=== PATIENT | male | born 1960 ===

== ENCOUNTER 2018-02-12 22:21 | Emergency (ER) | payer OTHER ==
--- NOTE | 2018-02-12 22:59 | ED PDOC ---
HPI: Cardiac Arrest Chief Complaint (Provider): cardiac arrest History Per: EMS, Family Reason For Code Blue: Full Arrest Circumstances: Brought To ED By EMS Arrest Witnessed By: No One CPR Initiated Prior To MD Arrival?: Yes Down-Time Before ACLS: Unknown Treatment Initiated Prior To MD Arrival: CPR, BVM Ventilations, Defibrillation Additional Complaint(s): 57yo man with h/o high cholesterol bright in by [facility] in cardiac arrest According to pt's son, pt's friends called son at 815p because pt was unresponsive after drinking and needed to be driven home. Son found pt unresponsive but warm, and he drove him home. When arrived at home, pt still unresponsive and family was only able to move him from car to ground next to car because pt was not moving at all on his own. Son noticed at that time he was cold and not breathing and called police, then EMS contacted. EMS report no pulse or breathing on their arrival. CPR was initiated. Defibrillator placed that recommended shock. Cardiac arrest persisted and CPR continued and pt transported to ER. PM Dr Amadeo Root - Initial Findings Mentation: Unresponsive Respirations: None (Assisted) Pulse: None Rhythm: Asystole <Zayra Barraza - Last Filed: 02/12/18 23:19> <Jim Cabrales - Last Filed: 02/13/18 04:20> Time Seen by Provider: 02/12/18 22:51 Chief Complaint (Nursing): Cardiac Arrest Past Medical History Reviewed: Historical Data, Nursing Documentation, Vital Signs - Medical History PMH: HTN, Hyperlipidemia Denies: Chronic Kidney Disease - Family History Family History: States: Unknown Family Hx - Social History Current smoker - smoking cessation education provided: No Alcohol: Social <Zayra Barraza - Last Filed: 02/12/18 23:19> <Jim Cabrales - Last Filed: 02/13/18 04:20> - Allergies Allergies/Adverse Reactions: Allergies Allergy/AdvReac Type Severity Reaction Status Date / Time No Known Allergies Allergy Verified 02/12/18 22:30 Review of Systems Review Of Systems: ROS cannot be obtained secondary to pt's inabilty to answer questions. <Zayra Barraza - Last Filed: 02/12/18 23:19> Physical Exam - Physical Exam Appears: Positive for: In Acute Distress Head Exam: Positive for: ATRAUMATIC, NORMOCEPHALIC Skin: Positive for: Mottled, Cyanosis Eye Exam: Positive for: Other (no corneal reflex, pupils fixed) ENT: Positive for: Other (copious dark brown fluid and debris (food particles) from nose and mouth) Neck: Positive for: Trachea Midline Cardiovascular/Chest: Positive for: Other (No cardiac impulse, no pulse) Respiratory: Positive for: Other (Apneic, minimal air movement with bag-vent) Gastrointestinal/Abdominal: Positive for: Soft. Negative for: Distended Back: Positive for: Other (No abnormalities) Extremity: Negative for: Pedal Edema, Deformity Neurologic/Psych: Positive for: Other (GCS 3). Negative for: Alert <Zayra Barraza - Last Filed: 02/12/18 23:19> - Progress ED Course And Treament: No cardiac activity on bedside US Intubation and TLC placement performed by Dr Cabrales ACLS protocol followed with no ROSC Time of called 1044p Family in ER during resuscitation attempt and and aware. <Zayra Barraza - Last Filed: 02/12/18 23:19> Procedures - Central Line Central Line Lumen: triple Central Line Postion: femoral (R) Complications: none Central Line Post Position: good blood return <Jim Cabrales - Last Filed: 02/13/18 04:20> Disposition - Disposition Disposition Time: 22:45 <Zayra Barraza - Last Filed: 02/12/18 23:19> <Jim Cabrales - Last Filed: 02/13/18 04:20> - Clinical Impression Clinical Impression: Cardiac arrest - Disposition Condition: Endotracheal Intubation - Endotracheal Intubation Intubated With ETT Size: 7 Blade Type Used: Curved Indication: Respiratory Failure, Airway Protection Intubated: Orally Pre-Intubation Airway Assessment: Need For Airway management Did Not Allow Time Post-Intubation Assessment: ETT Secured AT (cm): (24), Breath Sounds Equal Bilat, Color Change W/End Tidal CO2 Detector <Jim Cabrales - Last Filed: 02/13/18 04:20> Proc: Central Venous Access - Time Out Time Out: Patient ID confirmed - Procedure Procedure: Central Line placement: Right (attempted on RIGHT and LEFT) Technique:: Ultrasound guidance, Femoral vein - Consent obtained Consent obtained: Emergent consent implied - Performed by Performed by: Attending Physician - Indications Indication(s):: Centrally admin. meds Contraindications: None Tube type:: Triple lumen - Number of Attempts Attempts: 3 <Zayra Barraza - Last Filed: 02/12/18 23:19>
[2018-02-13 00:21] VITALS: TEMP 97.2
== END 2018-02-13 01:00 ==
LOC: H.ER 22:21
DX: I46.9 Cardiac arrest, cause unspecified (principal); E78.00 Pure hypercholesterolemia, unspecified; I10 Essential (primary) hypertension